=== PATIENT | female | born 1940 | race Caucasian/White ===

== ENCOUNTER 2024-06-06 18:26 | Emergency (ER) | payer MEDICARE, SELFPAY ==
[2024-06-06 18:42] VITALS: BP 175/75; PULSE 101; RESP 20; TEMP 36; O2SAT 97; BMI 35.8
--- NOTE | 2024-06-06 18:46 | DI.RAD.S_ITS ---
PROCEDURE: XR CHEST 1V INDICATIONS: Shortness of breath TECHNIQUE: One view of the chest was acquired. COMPARISON: None. FINDINGS: Surgical changes and devices: None. Lungs and pleura: Moderate diffuse interstitial prominence. Minimal perihilar airway thickening. No dense consolidation. No substantial pleural effusion. No pneumothorax. Mediastinum: Mediastinal contours appear normal. Heart size is normal. Bones and chest wall: No suspicious bony lesions. Overlying soft tissues appear unremarkable. IMPRESSION: Non-specific moderate diffuse interstitial prominence with minimal perihilar airway thickening. Findings may represent pulmonary edema/CHF versus infectious or inflammatory process if clinically appropriate. No dense consolidation seen. Dictated by: Loyd Gonzalez M.D. on 06/06/2024 at 19:42 Approved by: Loyd Gonzalez M.D. on 06/06/2024 at 19:44
--- NOTE | 2024-06-06 19:00 | EKG_ITS ---
[facility] [address] [place] [address] Test Date: 2024-06-06 Pat Name: Minerva Nelson Department: [facility] Room: Gender: Female Qa Auditor: SAMUEL HENLEY : 1940 Requested By: Order Number: [id number] Reading MD: Jose Nelson MD Measurements Intervals [place] Rate: 104 P: -3 SC: 162 QRS: -4 QRSD: 80 T: -3 QT: 342 QTc: 449 Interpretive Statements Sinus tachycardia Minimal voltage criteria for LVH, may be normal variant ( R in aVL ) Cannot rule out Anterior infarct , age undetermined Electronically Signed On 06-07-2024 7:48:04 PST by Jose Nelson MD
[2024-06-06 19:08] LABS: Add Manual Diff / Slide Review NO; Basophils Absolute Auto 100 /uL (0-100); Basophils Percent Auto 0.7 % (0-2); Eosinophils Absolute Auto 700 /uL (0-450); Eosinophils Percent Auto 7.6 % (2-4); Hematocrit 37.4 % (36-46); Hemoglobin 12.3 g/dL (12.0-16.0); Lymphocytes Absolute Auto 600 /uL (1100-4500); Lymphocytes Percent Auto 6.1 % (25-40); Mean Corpuscular Hemoglobin 30.2 PG (26-34); Mean Corpuscular Volume 91.6 fL (80-100); Monocytes Absolute Auto 700 /uL (0-900); Monocytes Percent Auto 7.6 % (3-14); Neutrophils Absolute Auto 7500 /uL (1500-7000); Platelet Count 276 X10^3/uL (150-400); Red Blood Cell Count 4.08 X10^6/uL (4.0-5.2); Red Cell Distribution Width 14.5 % (11.6-14.8); White Blood Cell Count 9.6 X10^3/uL (4.5-11.0)
[2024-06-06 19:14] LABS: INR 1.1 (0.9-1.3); Prothrombin Time 12.4 SECONDS (9.4-12.5)
[2024-06-06 19:20] LABS: Lactate (Lactic Acid) 1.6 mmol/L (0.7-2.1)
[2024-06-06 19:22] LABS: Alanine Aminotransferase 19 IU/L (<35); Albumin 4.5 g/dL (3.5-5.0); Albumin Globulin Ratio 1.3 (1.0-2.8); Alkaline Phosphatase 90 U/L (38-126); Aspartate Aminotransferase 32 IU/L (14-36); BUN Creatinine Ratio 14.8 (6-22); Bilirubin Total 0.4 mg/dL (0.2-1.3); Blood Urea Nitrogen 21 mg/dL (7-17); Calcium 9.1 mg/dL (8.4-10.2); Carbon Dioxide 18 mmol/L (22-32); Chloride 108 mmol/L (98-107); Estimated Glomerular Filt Rate 37 mL/min (>60); Globulin 3.4 g/dL (1.7-4.1); Glucose 120 mg/dL (80-110); HEMOLYSIS 38 (0-50); Potassium 4.5 mmol/L (3.4-5.1); Sodium 137 mmol/L (137-145); Total Protein 7.9 g/dL (6.3-8.2)
[2024-06-06 19:31] LABS: NT-proBNP (BNP-Adult 18+) 527 pg/mL (<450); Troponin I < 0.012 ng/mL (0.01-0.034)
[2024-06-06 19:45] LABS: Influenza A - CEPHEID Flu A NEGATIVE (NEGATIVE); Influenza B - CEPHEID Flu B NEGATIVE (NEGATIVE); Respiratory Syncytial Virus Negative (Negative)
[2024-06-06 19:54] LABS: COVID-19 CEPHEID 4-PLEX PCR Negative (Negative)
[2024-06-06 23:18] VITALS: PULSE 115; RESP 16; O2SAT 93
== END 2024-06-06 23:20 | disposition left against medical advice (07) ==
PROVIDERS: Emergency Provider Emergency Medicine
DX: R06.02 Shortness of breath (principal)
CPT/HCPCS: 0241U; 36415; 71045; 80053; 83605; 83880; 84484; 85025; 85610; 93005; 93010; 99283

== ENCOUNTER → 2024-11-21 14:50 | Outpatient (CLI) | payer MEDICARE, SELFPAY ==
--- NOTE | 2024-11-21 14:53 | DI.ECHO.S_ITS ---
[facility]+ [facility] : : [address] : : [place] : : [id number] : : Phone: [phone] Echocardiogram Report + + :Name: BHARGAVI EASLEY Study Date: 11/21/2024 Height: 66 in : :[facility] ReadingLocation: Weight: 215 lb : : Gender: Female BSA: 2.1 m2 : :: 1940 Age: 84 yrs BP: 151/68 mmHg: :Reason For Study: Heart Failure : :Ordering Physician: JORGE, : :GENI Padron Performed By: Manda Lujan : :Referring: GENI ESCOTO : + + Interpretation Summary The ejection fraction is estimated to be 60-65%. Grade II diastolic dysfunction. The left atrium is moderately dilated. The right ventricle is normal in size and function. There is moderate to severe mitral regurgitation. There is mild to moderate aortic regurgitation. Pulmonary artery pressures cannot be estimated because of the lack of a measurable TR jet velocity but the IVC suggests a CVP of around 3 mmHg. Procedure: A two-dimensional transthoracic echocardiogram with color flow and Doppler was performed. The study quality was technically adequate. There is no prior echocardiogram noted for this patient. The heart rate ranged between 85-89 bpm during the study. Left Ventricle: The left ventricle is normal in size and wall thickness. The ejection fraction is estimated to be 60-65%. Diastolic parameters suggest a pseudonormalization pattern, consistent with probable elevated filling pressures. Right Ventricle: The right ventricle is normal in size and function. Atria: The left atrium is moderately dilated. Right atrial size is normal. The interatrial septum grossly appears intact with no obvious evidence for an atrial septal defect. Mitral Valve: The mitral valve leaflets appear mildly thickened, but open well. There is mild mitral annular calcification. There is moderate to severe mitral regurgitation. Aortic Valve: The aortic valve is trileaflet. The aortic valve opens well. The aortic valve is moderately calcified. There is no aortic valve stenosis. There is mild to moderate aortic regurgitation. Tricuspid Valve: The tricuspid valve leaflets are thin and pliable. There is a trace or physiologic amount of tricuspid regurgitation. Pulmonary artery pressures cannot be estimated because of the lack of a measurable TR jet velocity but the IVC suggests a CVP of around 3 mmHg. Pulmonic Valve: The pulmonic valve is not well seen, but is grossly normal. There is a trace or physiologic amount of pulmonic regurgitation. Great Vessels: The aortic root is normal size. The ascending aorta is normal in size. The aortic arch is normal in size. The IVC is of normal diameter and collapses greater than 50% with a sniff. This suggests a low right atrial pressure of 3 mm Hg. Pericardium/ Pleura There is no pericardial effusion. There is no pleural effusion. MMode/2D Measurements & Calculations LVIDd: 5.1 cm LVOT diam: 1.9 cm LVIDs: 2.3 cm Ao root diam: 2.9 cm FS: 55.5 % asc Aorta Diam: 2.9 cm EPSS: 0.61 cm Ao Arch Diam (Prox Trans): 2.8 cm IVSd: 1.0 cm LVPWd: 0.67 cm LV quesada. diameter/BSA (cm/m^2): 2.5 LV sys. diameter/BSA (cm/m^2): 1.1 LA A2 area: 27.0 cm2 RA long axis: 5.3 cm LA A4 area: 23.6 cm2 RA area: 13.2 cm2 LA length (vol): 5.6 cm RA vol: 27.7 ml LA vol: 96.8 ml RA : 13.4 ml/m2 LA vol index: 46.9 ml/m2 IVC diam: 1.8 cm TAPSE: 2.5 cm Doppler Measurements & Calculations Ao V2 max: 165.2 cm/sec LVOT Max Jeremias: 90.5 cm/sec Ao V2 mean: 117.6 cm/sec LV V1 max P.3 mmHg Ao max P.9 mmHg LV V1 VTI: 20.7 cm Ao mean P.3 mmHg YURIY(I,D): 1.7 cm2 Ao V2 VTI: 35.3 cm YURIY(V,D): 1.6 cm2 sev ratio: 0.59 YURIY indexed to BSA (cm^2/m^2): 0.83 AI P1/2t: 490.2 msec AI dec slope: 228.2 cm/sec2 MV E max jeremias: 169.8 cm/sec TR max jeremias: 317.6 cm/sec MV A max jeremias: 154.0 cm/sec TR max P.3 mmHg MV E/A: 1.1 PA V2 max: 72.3 cm/sec Med Peak E' Jeremias: 4.9 cm/sec PA V2 mean: 48.7 cm/sec E/E' med: 34.9 PA mean P.1 mmHg Lat Peak E' Jeremias: 9.0 cm/sec PA pr(Accel): 5.4 mmHg E/E' lat: 18.9 E/e' average: 26.9 MV dec time: 0.26 sec MR ERO: 0.37 cm2 Pulm A Revrenata Jeremias: 27.4 cm/sec MR VTI: 191.8 cm PISA: 6.0 cm2 SV(LVOT): 60.5 ml MR flow rate: 220.9 cm3/sec MR PISA radius: 0.98 cm Reading Physician:12:52 PM
== END ==
PROVIDERS: Referring Provider Internal Medicine Cardiovascular Disease; Visit Provider Internal Medicine Cardiovascular Disease
DX: I08.0 Rheumatic disorders of both mitral and aortic valves (principal); I50.32 Chronic diastolic (congestive) heart failure
CPT/HCPCS: 93306